=== PATIENT | female | born 1995 | race African-American/Black ===

== ENCOUNTER 2018-05-10 15:53 | Emergency (ER) | payer SELFPAY ==
[~2018-05-10] VITALS: Ht 162.6 cm; Wt 79.8 kg
[2018-05-10 16:21] VITALS: BP 132/88
[2018-05-10] MEDS ORDERED: ACETAMINOPHEN ES 500 MG TABLET PO ONE (16:30)
[2018-05-10] MEDS ORDERED: IBUPROFEN 600 MG TABLET PO ONE ×2 (16:30→16:55)
[2018-05-10] MEDS ORDERED: ACETAMINOPHEN ES 500 MG TABLET ONE (16:54)
== END 2018-05-10 17:50 | disposition home or self-care (01) ==
LOC: ER 15:59
DX: S80.01XA Contusion of right knee, initial encounter (principal); Z98.890 Other specified postprocedural states; Z60.2 Problems related to living alone; W01.0XXA Fall on same level from slipping, tripping and stumbling without subsequent striking against object, initial encounter; Y93.89 Activity, other specified; Y92.89 Other specified places as the place of occurrence of the external cause; Y99.8 Other external cause status
CPT/HCPCS: 73564; 84703; 99284; A4606